=== PATIENT | male | born 1960 | race Caucasian/White ===

== ENCOUNTER 2024-02-23 16:11 | Emergency (ER) | payer BC ==
[~2024-02-23] VITALS: Ht 157.5 cm; Wt 87.5 kg
[2024-02-23 16:11] VITALS: BP_SYST 154; PULSE 82; RESP 20; TEMP 99.4; O2SAT 95
[2024-02-23 17:10] LABS: HEMATOCRIT 43.5 % (36-54); HEMOGLOBIN 14.8 g/dL (14.0-18.0); MEAN CORPUSCULAR HEMOGLOBIN 32 pg (27-31); MEAN CORPUSCULAR HGB CONC 34 % (32-36); MEAN CORPUSCULAR VOLUME 94 fL (79.0-98.0); PLATELET COUNT (AUTO) 212 K/uL (130-430); RED BLOOD CELL COUNT(AUTO) 4.64 MIL/uL (4.2-6.2); RED CELL DISTRIBUTION WIDTH 14.1 % (9.0-15.0); WHITE BLOOD COUNT (AUTO) 14.1 K/uL (4.8-10.8)
[2024-02-23 17:35] LABS: PROTHROMBIN TIME 10.4 SECS (9.5-12.5)
[2024-02-23 17:51] LABS: ATYPICAL LYMPHOCYTES % 3 % (0-0); BAND % (MANUAL) 18 % (0-6); BASOPHILS % (MANUAL) 0 % (0-2); EOSINOPHILS % (MANUAL) 0 % (0-7); LYMPHOCYTES % (MANUAL) 6 % (20-46); MONOCYTES % (MANUAL) 4 % (0-11)
[2024-02-23 17:52] LABS: PLATELET ESTIMATE ADEQUATE (ADEQUATE)
[2024-02-23 18:04] LABS: ANION GAP 9 (5-15); CALCIUM 8.2 mg/dL (8.4-11.0); CARBON DIOXIDE 31 mmol/L (23-29); CHLORIDE 96 mmol/L (98-107); CREATINE KINASE, TOTAL 881 U/L (39-308); CREATININE 1.23 mg/dL (0.55-1.30); GFR AFRICAN AMERICAN 76 mL/min (>90); GLUCOSE 121 mg/dL (74-106); SODIUM SERUM 136 mmol/L (136-145); UREA NITROGEN, BLOOD 16 mg/dL (8-21)
[2024-02-23 18:06] LABS: GFR NON AFRICAN-AMERICAN 63 mL/min (>90)
[2024-02-23] MEDS ORDERED: LEVO-62 PO (18:35)
[2024-02-23] MEDS ORDERED: IBUP-1971 PO (18:35)
[2024-02-23 18:58] VITALS: BP_SYST 147; PULSE 88; RESP 22; TEMP 98.7; O2SAT 97
[2024-02-23 19:02] LABS: CKMB RELATIVE INDEX 0.6 (0.0-2.9); CREATINE KINASE MB 5.6 ng/mL (0-3.6)
== END 2024-02-23 18:57 | disposition home or self-care (01) ==
LOC: SED 16:11
DX: J18.9 Pneumonia, unspecified organism (principal); R05.9 Cough, unspecified; Z79.899 Other long term (current) drug therapy
CPT/HCPCS: 36415; 71250-TC; 80048; 82550; 82553; 83605; 83880; 85007; 85027; 85610; 85730; 99284